=== PATIENT | female | born 1940 | race African-American/Black ===

== ENCOUNTER 2018-11-14 07:47 | Inpatient (IN) | payer MEDICAID ==
[~2018-11-14] VITALS: Ht 165.1 cm; Wt 74.8 kg
[~2018-11-14 07:47] MED LIST: AMLO5TAB4 PO; CARV6.2548 PO; FURO20TA4 PO; HYDROXYCHLOROQUINE PO; POTA20TA82 PO; PRED5TAB48 PO
[2018-11-14] MEDS ORDERED: ALBUTEROL (0.083%) 2.5MG/3ML NEB HHN STA (08:10)
[2018-11-14] MEDS ORDERED: IPRATROPIUM BROMIDE (0.02%) 0.5MG/2.5ML NEB HHN STA (08:10)
[2018-11-14] MEDS ORDERED: METHYLPREDNISOLONE SOD SUCC 125 MG/2 ML VIAL IV STA (08:10)
[2018-11-14] MEDS ORDERED: ASPIRIN 325MG EC TABLET PO ONE (08:15)
[2018-11-14] MEDS ORDERED: NITROGLYCERIN OINT 1GM/INCH UDPKT TD ONE (08:15)
[2018-11-14 08:55] LABS: BASOPHILS % 0.6 % (0.0-2.0); HEMATOCRIT. 33.7 % (36.0-48.0); HEMOGLOBIN. 11.2 g/dL (12.0-16.0); LYMPHOCYTES % 27.7 % (20.0-50.0); MEAN CORPUSCULAR HEMOGLOBIN 31.7 pg (28.0-32.0); MEAN PLATELET VOLUME 8.2 fl (7.4-10.4); MONOCYTES % 13.2 % (2.0-8.0); NEUTROPHILS % 55.5 % (40.0-76.0); PLATELET 86 x1000/uL (130-400); RED BLOOD CELL COUNT 3.55 mill/uL (4.2-5.4)
[2018-11-14 09:00] LABS: CHLORIDE 107 mEq/L (98-107)
[2018-11-14 09:01] LABS: INR 1.1; PROTHROMBIN TIME 11.5 sec (9.6-11.0)
[2018-11-14] MEDS ORDERED: CEFTRIAXONE 1 G PREMIX 50 ML IV ONE (09:45)
[2018-11-14] MEDS ORDERED: AZITHROMYCIN 500 MG in DEXT 5% WATER 500 ML IV ONE (09:45)
[2018-11-14 10:00] VITALS: BP 117/70
[2018-11-14] MEDS ORDERED: ACETAMINOPHEN 325MG TABLET PO PRN (11:30)
[2018-11-14] MEDS ORDERED: ONDANSETRON HCL 4MG/2ML INJ IV PRN (11:30)
[2018-11-14] MEDS ORDERED: IPRATROPIUM/ALBUTEROL 0.5-3(2.5)MG/3ML NEB HHN PRN (11:30)
[2018-11-14] MEDS ORDERED: GUAIFENESIN-DM 200MG-20MG/10ML UDC PO PRN (11:30)
[2018-11-14] MEDS ORDERED: OSIM80TA PO (11:52)
[2018-11-14] MEDS ORDERED: LISI-186 PO (11:52)
[2018-11-14] MEDS ORDERED: ATROV IH (11:55)
[2018-11-14 12:00] VITALS: BP 118/80
[2018-11-14 13:32] VITALS: BP 117/70
[2018-11-14] MEDS: FUROSEMIDE 40MG/4ML VIAL IVP SCH (13:50)
[2018-11-14] MEDS: FAMOTIDINE 20MG TABLET PO SCH (13:50)
[2018-11-14] MEDS: METHYLPREDNISOLONE SOD SUCC 40 MG/ML VIAL IV SCH ×2 (13:50→21:59)
[2018-11-14] MEDS: GUAIFENESIN 600MG ER TABLET PO SCH ×2 (13:51→21:59)
[2018-11-14 14:00] VITALS: BP 115/81
[2018-11-14] MEDS: IPRATROPIUM/ALBUTEROL 0.5-3(2.5)MG/3ML NEB HHN SCH ×2 (15:35→21:15)
[2018-11-14 20:00] VITALS: BP 127/62
[2018-11-15] VITALS: BP 128/66
[2018-11-15] MEDS: IPRATROPIUM/ALBUTEROL 0.5-3(2.5)MG/3ML NEB HHN SCH ×7 (01:04→19:56)
[2018-11-15 04:00] VITALS: BP 119/64
[2018-11-15] MEDS: METHYLPREDNISOLONE SOD SUCC 40 MG/ML VIAL IV SCH (06:28)
[2018-11-15 08:00] VITALS: BP 117/70
[2018-11-15 08:06] LABS: HEMATOCRIT. 32.2 % (36.0-48.0); HEMOGLOBIN. 10.7 g/dL (12.0-16.0); MEAN CORPUSCULAR HEMOGLOBIN 31.5 pg (28.0-32.0); MEAN CORPUSCULAR VOLUME 94.5 fL (81.0-99.0); MEAN PLATELET VOLUME 8.7 fl (7.4-10.4); PLATELET 86 x1000/uL (130-400); RED CELL DISTRIBUTION WIDTH 14.5 % (11.6-14.6)
[2018-11-15 08:35] LABS: CHLORIDE 106 mEq/L (98-107)
[2018-11-15] MEDS: FAMOTIDINE 20MG TABLET PO SCH (08:48)
[2018-11-15] MEDS: ASPIRIN 81MG TABLET PO SCH (08:48)
[2018-11-15] MEDS: GUAIFENESIN 600MG ER TABLET PO SCH ×2 (08:48→22:46)
[2018-11-15] MEDS: FUROSEMIDE 40MG/4ML VIAL IVP SCH (09:00)
[2018-11-15 12:00] VITALS: BP 125/68
[2018-11-15 13:24] LABS: CLARITY URINE CLEAR (CLEAR); COLOR URINE YELLOW (YELLOW); KETONES URINE NEGATIVE (NEGATIVE); LEUKOCYTE ESTERASE URINE NEGATIVE (NEGATIVE); NITRITE URINE NEGATIVE (NEGATIVE); OCCULT BLOOD URINE NEGATIVE (NEGATIVE); PH URINE 5.5 (4.5-8.0); PROTEIN URINE TRACE (NEGATIVE); SPECIFIC GRAVITY URINE 1.031 (1.005-1.030); UROBILINOGEN URINE 0.2 E.U./dL (0.2-1.0)
[2018-11-15 13:30] LABS: PLATELET ESTIMATE DECREASED
[2018-11-15 13:47] LABS: *AMPHETAMINES SCREEN URINE NEGATIVE (NEGATIVE)
[2018-11-15 13:48] LABS: *BARBITURATES SCREEN URINE NEGATIVE (NEGATIVE); *BENZODIAZEPINES SCREEN URINE NEGATIVE (NEGATIVE); *COCAINE SCREEN URINE NEGATIVE (NEGATIVE); METHADONE URINE SCREEN NEGATIVE (NEGATIVE); OPIATES URINE SCREEN NEGATIVE (NEGATIVE)
[2018-11-15 13:49] LABS: CANNABINOID URINE SCREEN NEGATIVE (NEGATIVE); PHENCYCLIDINE URINE SCREEN NEGATIVE (NEGATIVE)
[2018-11-15] MEDS ORDERED: ATROV INH (15:01)
[2018-11-15] MEDS ORDERED: HYDR200T35 PO (15:01)
[2018-11-15] MEDS: FLUTICASONE PROPIONATE 50MCG/SPRAY BOTTLE BOTHNSTRLS SCH ×2 (15:11→22:47)
[2018-11-15 16:00] VITALS: BP 137/78
[2018-11-15 20:00] VITALS: BP 118/67
[2018-11-16] VITALS: BP 105/65
[2018-11-16] MEDS: IPRATROPIUM/ALBUTEROL 0.5-3(2.5)MG/3ML NEB HHN SCH ×5 (00:31→22:10)
[2018-11-16 04:00] VITALS: BP 118/75
[2018-11-16 07:01] LABS: BASOPHILS % 0.2 % (0.0-2.0); EOSINOPHILS % 0.2 % (0.0-5.0); HEMATOCRIT. 31.8 % (36.0-48.0); HEMOGLOBIN. 10.5 g/dL (12.0-16.0); LYMPHOCYTES % 18.5 % (20.0-50.0); MEAN CORPUSCULAR HEMOGLOBIN 31.5 pg (28.0-32.0); MEAN CORPUSCULAR VOLUME 95.4 fL (81.0-99.0); MEAN PLATELET VOLUME 8.3 fl (7.4-10.4); MONOCYTES % 5.7 % (2.0-8.0); NEUTROPHILS % 75.4 % (40.0-76.0); PLATELET 101 x1000/uL (130-400); RED BLOOD CELL COUNT 3.33 mill/uL (4.2-5.4); RED CELL DISTRIBUTION WIDTH 15.2 % (11.6-14.6)
[2018-11-16 07:09] LABS: CHLORIDE 104 mEq/L (98-107)
[2018-11-16 08:00] VITALS: BP 108/63
[2018-11-16] MEDS: ASPIRIN 81MG TABLET PO SCH (08:47)
[2018-11-16] MEDS: FUROSEMIDE 40MG/4ML VIAL IVP SCH (08:47)
[2018-11-16] MEDS: GUAIFENESIN 600MG ER TABLET PO SCH ×2 (08:47→20:41)
[2018-11-16] MEDS: FAMOTIDINE 20MG TABLET PO SCH (08:47)
[2018-11-16] MEDS: FLUTICASONE PROPIONATE 50MCG/SPRAY BOTTLE BOTHNSTRLS SCH ×2 (08:57→20:42)
[2018-11-16] MEDS ORDERED: PREDNISONE 20MG TABLET PO SCH (09:00)
[2018-11-16 12:00] VITALS: BP 115/59
[2018-11-16 16:00] VITALS: BP 114/54
[2018-11-16] MEDS: FUROSEMIDE 100MG/10ML VIAL IVP SCH (17:13)
[2018-11-16 20:00] VITALS: BP 119/66
[2018-11-16] MEDS: CARVEDILOL 3.125 MG TABLET PO SCH (20:41)
[2018-11-17] VITALS: BP 102/53
[2018-11-17] MEDS: IPRATROPIUM/ALBUTEROL 0.5-3(2.5)MG/3ML NEB HHN SCH ×6 (01:40→22:06)
[2018-11-17 04:00] VITALS: BP 106/54
[2018-11-17] MEDS: FUROSEMIDE 100MG/10ML VIAL IVP SCH ×2 (06:16→18:30)
[2018-11-17 08:00] VITALS: BP 107/65
[2018-11-17 08:11] LABS: BASOPHILS % 0.1 % (0.0-2.0); EOSINOPHILS % 0.7 % (0.0-5.0); HEMATOCRIT. 34.3 % (36.0-48.0); HEMOGLOBIN. 11.7 g/dL (12.0-16.0); LYMPHOCYTES % 25.7 % (20.0-50.0); MEAN CORPUSCULAR VOLUME 93.8 fL (81.0-99.0); MEAN PLATELET VOLUME 8.6 fl (7.4-10.4); MONOCYTES % 8.9 % (2.0-8.0); NEUTROPHILS % 64.6 % (40.0-76.0); PLATELET 114 x1000/uL (130-400); RED BLOOD CELL COUNT 3.66 mill/uL (4.2-5.4); RED CELL DISTRIBUTION WIDTH 15.4 % (11.6-14.6)
[2018-11-17] MEDS: CARVEDILOL 3.125 MG TABLET PO SCH ×2 (08:11→21:00)
[2018-11-17 08:29] LABS: CHLORIDE 99 mEq/L (98-107)
[2018-11-17] MEDS: GUAIFENESIN 600MG ER TABLET PO SCH ×2 (09:06→21:42)
[2018-11-17] MEDS: FLUTICASONE PROPIONATE 50MCG/SPRAY BOTTLE BOTHNSTRLS SCH ×2 (09:07→21:43)
[2018-11-17] MEDS: FAMOTIDINE 20MG TABLET PO SCH (09:07)
[2018-11-17] MEDS: ASPIRIN 81MG TABLET PO SCH (09:07)
[2018-11-17 12:00] VITALS: BP 92/53
[2018-11-17] MEDS: POTASSIUM CHLORIDE 20MEQ TABLET SR PO SCH (12:31)
[2018-11-17 16:00] VITALS: BP 100/55
[2018-11-17 20:00] VITALS: BP 100/50
[2018-11-18] VITALS: BP 103/58
[2018-11-18] MEDS: IPRATROPIUM/ALBUTEROL 0.5-3(2.5)MG/3ML NEB HHN SCH ×4 (01:19→12:55)
[2018-11-18 04:00] VITALS: BP 99/54
[2018-11-18] MEDS: FUROSEMIDE 100MG/10ML VIAL IVP SCH (07:06)
[2018-11-18 07:56] VITALS: BP 106/64
[2018-11-18 08:04] LABS: BASOPHILS % 0.3 % (0.0-2.0); EOSINOPHILS % 5.8 % (0.0-5.0); HEMATOCRIT. 33.1 % (36.0-48.0); LYMPHOCYTES % 29.8 % (20.0-50.0); MEAN CORPUSCULAR HEMOGLOBIN 31.5 pg (28.0-32.0); MEAN CORPUSCULAR VOLUME 94.7 fL (81.0-99.0); MEAN PLATELET VOLUME 8.4 fl (7.4-10.4); MONOCYTES % 11.6 % (2.0-8.0); NEUTROPHILS % 52.5 % (40.0-76.0); PLATELET 111 x1000/uL (130-400); RED CELL DISTRIBUTION WIDTH 15.3 % (11.6-14.6)
[2018-11-18] MEDS: POTASSIUM CHLORIDE 20MEQ TABLET SR PO SCH (08:38)
[2018-11-18] MEDS: FAMOTIDINE 20MG TABLET PO SCH (08:38)
[2018-11-18] MEDS: GUAIFENESIN 600MG ER TABLET PO SCH (08:38)
[2018-11-18] MEDS: ASPIRIN 81MG TABLET PO SCH (08:39)
[2018-11-18] MEDS: CARVEDILOL 3.125 MG TABLET PO SCH (08:39)
[2018-11-18] MEDS: FLUTICASONE PROPIONATE 50MCG/SPRAY BOTTLE BOTHNSTRLS SCH (08:39)
[2018-11-18 12:00] VITALS: BP 91/43
[2018-11-18 15:57] VITALS: BP 116/61
[2018-11-18 16:00] VITALS: BP 116/61
[2018-11-18] MEDS ORDERED: FUROSEMIDE 40MG TABLET PO SCH (18:00)
== END 2018-11-18 17:55 | disposition home or self-care (01) | DRG 140 ==
LOC: ER 07:47 → 5WST 10:10 → EDBEDREQ 10:15 → ENRESERV 10:35
PROVIDERS: ADMIT Internal Medicine Nephrology; ATTEND Internal Medicine Nephrology
DX: J44.1 Chronic obstructive pulmonary disease with (acute) exacerbation (principal); J96.00 Acute respiratory failure, unspecified whether with hypoxia or hypercapnia; I50.43 Acute on chronic combined systolic (congestive) and diastolic (congestive) heart failure; D61.818 Other pancytopenia; I42.9 Cardiomyopathy, unspecified; I69.354 Hemiplegia and hemiparesis following cerebral infarction affecting left non-dominant side; M32.9 Systemic lupus erythematosus, unspecified; C34.90 Malignant neoplasm of unspecified part of unspecified bronchus or lung; I11.0 Hypertensive heart disease with heart failure; D63.8 Anemia in other chronic diseases classified elsewhere; M19.90 Unspecified osteoarthritis, unspecified site; Z92.3 Personal history of irradiation; E07.9 Disorder of thyroid, unspecified; E87.6 Hypokalemia; K21.9 Gastro-esophageal reflux disease without esophagitis; M48.00 Spinal stenosis, site unspecified; T38.0X5A Adverse effect of glucocorticoids and synthetic analogues, initial encounter; Y92.89 Other specified places as the place of occurrence of the external cause
CPT/HCPCS: 36415; 70490; 71045; 74018; 80048; 80305; 81003; 83605; 83880; 84484; 92610; 93005; 93306; 94640; 96374; 97161; 97166; 97535; 99285; J0456; J0696; J1940; J2920; J2930; J7060; J7512; J7611; J7620

== ENCOUNTER 2019-05-31 18:41 | Inpatient (IN) | payer MEDICAID ==
[~2019-05-31] VITALS: Ht 162.6 cm; Wt 72.2 kg
[~2019-05-31 18:41] MED LIST changes: -AMLO5TAB4 PO; +ATROV INH; +HYDR200T35 PO; -HYDROXYCHLOROQUINE PO; +LISI-186 PO; +OSIM80TA PO; -POTA20TA82 PO; -PRED5TAB48 PO
[2019-05-31] MEDS ORDERED: SODIUM CHLORIDE 0.9% 1,000 ML IV ONE (22:45)
[2019-05-31 23:13] LABS: BASOPHILS % 0.5 % (0.0-2.0); HEMOGLOBIN. 11.2 g/dL (12.0-16.0); MEAN CORPUSCULAR HEMOGLOBIN 30.8 pg (28.0-32.0); MEAN CORPUSCULAR VOLUME 90.3 fL (81.0-99.0); MEAN PLATELET VOLUME 6.9 fl (7.4-10.4); MONOCYTES % 9.2 % (2.0-8.0); NEUTROPHILS % 68.3 % (40.0-76.0); PLATELET 150 x1000/uL (130-400); RED BLOOD CELL COUNT 3.65 mill/uL (4.2-5.4); RED CELL DISTRIBUTION WIDTH 13.8 % (11.6-14.6)
[2019-05-31 23:20] LABS: CHLORIDE 100 mEq/L (98-107)
[2019-05-31 23:23] LABS: INR 1.1
[2019-06-01] MEDS ORDERED: ONDANSETRON HCL 4MG/2ML INJ IV PRN (00:45)
[2019-06-01] MEDS ORDERED: IPRATROPIUM/ALBUTEROL 0.5-3(2.5)MG/3ML NEB HHN PRN (00:45)
[2019-06-01] MEDS ORDERED: DIPHENHYDRAMINE 50MG/ML VIAL IV PRN (00:45)
[2019-06-01] MEDS ORDERED: CLONIDINE 0.1MG TABLET PO PRN (00:45)
[2019-06-01] MEDS ORDERED: CEFTRIAXONE 1 G PREMIX 50 ML IV SCH (01:00)
[2019-06-01] MEDS ORDERED: IOHEXOL-300 100 ML BOTTLE ONE (07:30)
[2019-06-01 08:03] LABS: CLARITY URINE CLEAR (CLEAR); COLOR URINE YELLOW (YELLOW); KETONES URINE NEGATIVE (NEGATIVE); LEUKOCYTE ESTERASE URINE 1+ (NEGATIVE); NITRITE URINE NEGATIVE (NEGATIVE); OCCULT BLOOD URINE NEGATIVE (NEGATIVE); PROTEIN URINE NEGATIVE (NEGATIVE); SPECIFIC GRAVITY URINE 1.033 (1.005-1.030)
[2019-06-01 09:30] VITALS: BP 119/54
[2019-06-01 10:00] VITALS: BP 119/54
[2019-06-01] MEDS: FAMOTIDINE 20MG TABLET PO SCH (10:39)
[2019-06-01 10:40] LABS: BASOPHILS % 0.5 % (0.0-2.0); HEMATOCRIT. 33.6 % (36.0-48.0); HEMOGLOBIN. 11.1 g/dL (12.0-16.0); LYMPHOCYTES % 29.8 % (20.0-50.0); MEAN CORPUSCULAR HEMOGLOBIN 30.4 pg (28.0-32.0); MEAN PLATELET VOLUME 6.9 fl (7.4-10.4); MONOCYTES % 13.2 % (2.0-8.0); NEUTROPHILS % 56.5 % (40.0-76.0); PLATELET 139 x1000/uL (130-400); RED BLOOD CELL COUNT 3.65 mill/uL (4.2-5.4); RED CELL DISTRIBUTION WIDTH 14.1 % (11.6-14.6)
[2019-06-01] MEDS: CARVEDILOL 3.125 MG TABLET PO SCH ×2 (10:40→20:52)
[2019-06-01] MEDS: ENOXAPARIN 30MG/0.3ML SYR SUBCUT SCH (10:41)
[2019-06-01] MEDS: FUROSEMIDE 40MG/4ML VIAL IVP SCH (10:41)
[2019-06-01] MEDS: ACETAMINOPHEN 325MG TABLET PO PRN ×2 (10:42→23:49)
[2019-06-01 11:04] LABS: CHLORIDE 103 mEq/L (98-107)
[2019-06-01 12:00] VITALS: BP 119/58
[2019-06-01] MEDS: SODIUM CHLORIDE 0.9% INJ 3ML FLUSH IVF SCH ×2 (13:28→20:52)
[2019-06-01 16:43] VITALS: BP 90/45
[2019-06-01 20:00] VITALS: BP 118/59
[2019-06-02] VITALS: BP 123/63
[2019-06-02] MEDS: CEFTRIAXONE 1 G PREMIX 50 ML IV SCH (00:57)
[2019-06-02 04:00] VITALS: BP 121/59
[2019-06-02] MEDS: SODIUM CHLORIDE 0.9% INJ 3ML FLUSH IVF SCH ×3 (05:11→21:41)
[2019-06-02 08:06] VITALS: BP 116/53
[2019-06-02] MEDS: ACETAMINOPHEN 325MG TABLET PO PRN ×2 (08:48→20:02)
[2019-06-02] MEDS: FAMOTIDINE 20MG TABLET PO SCH (08:49)
[2019-06-02] MEDS: ENOXAPARIN 30MG/0.3ML SYR SUBCUT SCH (08:49)
[2019-06-02] MEDS: CARVEDILOL 3.125 MG TABLET PO SCH ×2 (09:00→20:02)
[2019-06-02] MEDS: FUROSEMIDE 40MG/4ML VIAL IVP SCH (09:12)
[2019-06-02 12:43] VITALS: BP 102/49
[2019-06-02 16:14] VITALS: BP 113/56
[2019-06-02 19:58] VITALS: BP 118/57
[2019-06-03] VITALS (7 sets, daily range): BP systolic 99–133; BP diastolic 53–66
[2019-06-03] MEDS: CEFTRIAXONE 1 G PREMIX 50 ML IV SCH
[2019-06-03] MEDS: ACETAMINOPHEN 325MG TABLET PO PRN ×3 (00:43→21:17)
[2019-06-03] MEDS: SODIUM CHLORIDE 0.9% INJ 3ML FLUSH IVF SCH ×3 (05:33→21:17)
[2019-06-03] MEDS: CARVEDILOL 3.125 MG TABLET PO SCH ×2 (09:00→21:17)
[2019-06-03] MEDS: FAMOTIDINE 20MG TABLET PO SCH (09:05)
[2019-06-03] MEDS: FUROSEMIDE 40MG TABLET PO SCH (09:05)
[2019-06-03] MEDS: ENOXAPARIN 30MG/0.3ML SYR SUBCUT SCH (09:09)
[2019-06-03] MEDS: AZITHROMYCIN 500 MG in DEXT 5% WATER 250 ML IV SCH (16:17)
[2019-06-03] MEDS: PIPERACILLIN/TAZOBACTAM 3.375 G in DEXT 5% WATER 100 ML IV SCH ×2 (21:16→23:58)
[2019-06-04 00:21] VITALS: BP 134/63
[2019-06-04] MEDS ORDERED: CEFTRIAXONE 1,000 MG in DEXTROSE 5% WATER 50 ML IV SCH (01:00)
[2019-06-04 04:00] VITALS: BP 99/52
[2019-06-04] MEDS: PIPERACILLIN/TAZOBACTAM 3.375 G in DEXT 5% WATER 100 ML IV SCH ×3 (05:17→17:13)
[2019-06-04] MEDS: SODIUM CHLORIDE 0.9% INJ 3ML FLUSH IVF SCH ×3 (05:17→21:17)
[2019-06-04 07:24] LABS: CHLORIDE 102 mEq/L (98-107)
[2019-06-04 07:42] LABS: PHOSPHORUS 2.4 mg/dL (2.5-4.9)
[2019-06-04 07:48] LABS: HEMATOCRIT. 29.8 % (36.0-48.0); HEMOGLOBIN. 10.3 g/dL (12.0-16.0); MEAN CORPUSCULAR HEMOGLOBIN 31.4 pg (28.0-32.0); MEAN CORPUSCULAR VOLUME 90.5 fL (81.0-99.0); PLATELET 142 x1000/uL (130-400); RED BLOOD CELL COUNT 3.29 mill/uL (4.2-5.4)
[2019-06-04 08:00] VITALS: BP 99/51
[2019-06-04] MEDS: CARVEDILOL 3.125 MG TABLET PO SCH ×2 (09:00→20:51)
[2019-06-04] MEDS: FUROSEMIDE 40MG TABLET PO SCH (09:17)
[2019-06-04] MEDS: FAMOTIDINE 20MG TABLET PO SCH (09:17)
[2019-06-04] MEDS: ENOXAPARIN 30MG/0.3ML SYR SUBCUT SCH (09:18)
[2019-06-04 12:00] VITALS: BP 108/56
[2019-06-04] MEDS: AZITHROMYCIN 500 MG in DEXT 5% WATER 250 ML IV SCH (15:46)
[2019-06-04 16:00] VITALS: BP 101/61
[2019-06-04 17:24] LABS: PLATELET ESTIMATE NORMAL
[2019-06-04] MEDS ORDERED: MAGNESIUM 1 G PREMIX 100 ML IV NR (17:30)
[2019-06-04] MEDS ORDERED: POTASSIUM PHOS,M-BASIC-D-BASIC 10 MMOL in DEXT 5% WATER 246.6667 ML IV NR (18:00)
[2019-06-04 20:55] VITALS: BP 105/54
[2019-06-04] MEDS: OMEPRAZOLE 20MG CAPSULE EXTENDED RELEASE PO SCH (21:17)
[2019-06-05] MEDS: PIPERACILLIN/TAZOBACTAM 3.375 G in DEXT 5% WATER 100 ML IV SCH ×3 (00:37→11:22)
[2019-06-05 00:46] VITALS: BP 116/56
[2019-06-05 04:00] VITALS: BP 96/51
[2019-06-05] MEDS: SODIUM CHLORIDE 0.9% INJ 3ML FLUSH IVF SCH ×2 (06:12→11:29)
[2019-06-05] MEDS: OMEPRAZOLE 20MG CAPSULE EXTENDED RELEASE PO SCH (06:12)
[2019-06-05 07:22] LABS: HEMATOCRIT. 28.8 % (36.0-48.0); HEMOGLOBIN. 9.8 g/dL (12.0-16.0); MEAN CORPUSCULAR HEMOGLOBIN 30.7 pg (28.0-32.0); MEAN PLATELET VOLUME 7.4 fl (7.4-10.4); PLATELET 146 x1000/uL (130-400); RED BLOOD CELL COUNT 3.19 mill/uL (4.2-5.4); RED CELL DISTRIBUTION WIDTH 13.7 % (11.6-14.6)
[2019-06-05 07:53] LABS: CHLORIDE 100 mEq/L (98-107)
[2019-06-05 08:00] VITALS: BP 107/52
[2019-06-05] MEDS: ENOXAPARIN 30MG/0.3ML SYR SUBCUT SCH (09:00)
[2019-06-05] MEDS: CARVEDILOL 3.125 MG TABLET PO SCH (11:22)
[2019-06-05] MEDS: FUROSEMIDE 40MG TABLET PO SCH (11:22)
[2019-06-05 12:15] VITALS: BP 102/49
[2019-06-05 15:19] VITALS: BP 95/50
[2019-06-05 15:45] VITALS: BP 95/50
[2019-06-05] MEDS: AZITHROMYCIN 500 MG in DEXT 5% WATER 250 ML IV SCH (16:04)
[2019-06-05 17:50] LABS: PLATELET ESTIMATE NORMAL
== END 2019-06-05 18:15 | disposition home or self-care (01) | DRG 720 ==
LOC: ER 18:41 → 6EST 23:28 → ENRESERV 06-01 08:58 → 6WST 06-01 14:15
PROVIDERS: ADMIT Internal Medicine; ATTEND Internal Medicine
DX: A41.9 Sepsis, unspecified organism (principal); I69.354 Hemiplegia and hemiparesis following cerebral infarction affecting left non-dominant side; I11.0 Hypertensive heart disease with heart failure; E87.1 Hypo-osmolality and hyponatremia; I50.42 Chronic combined systolic (congestive) and diastolic (congestive) heart failure; K57.92 Diverticulitis of intestine, part unspecified, without perforation or abscess without bleeding; C34.90 Malignant neoplasm of unspecified part of unspecified bronchus or lung; J44.9 Chronic obstructive pulmonary disease, unspecified; M32.9 Systemic lupus erythematosus, unspecified; N28.1 Cyst of kidney, acquired; R74.0 Nonspecific elevation of levels of transaminase and lactic acid dehydrogenase [LDH]; M19.90 Unspecified osteoarthritis, unspecified site; D64.9 Anemia, unspecified; D72.819 Decreased white blood cell count, unspecified; N39.0 Urinary tract infection, site not specified; K21.9 Gastro-esophageal reflux disease without esophagitis; Z87.440 Personal history of urinary (tract) infections; Z92.3 Personal history of irradiation; Z92.21 Personal history of antineoplastic chemotherapy; Z79.899 Other long term (current) drug therapy
CPT/HCPCS: 36415; 71045; 74176; 74177; 76700; 80048; 80053; 81003; 83605; 83735; 84100; 85025; 87804; 93970; 96365; 99285; J0456; J0696; J1200; J1650; J1940; J2543; J3475; J3490; J7030; J7060; Q9967

== ENCOUNTER 2019-07-20 10:10 | Inpatient (IN) | payer MEDICAID ==
[~2019-07-20] VITALS: Ht 172.7 cm; Wt 62.7 kg
[2019-07-20] MEDS ORDERED: SODIUM CHLORIDE 0.9% 1,000 ML IV ONE (10:43)
[2019-07-20 11:43] LABS: CHLORIDE 103 mEq/L (98-107)
[2019-07-20 11:44] LABS: BASOPHILS % 0.4 % (0.0-2.0); EOSINOPHILS % 1.1 % (0.0-5.0); HEMATOCRIT. 29.5 % (36.0-48.0); HEMOGLOBIN. 9.6 g/dL (12.0-16.0); LYMPHOCYTES % 8.2 % (20.0-50.0); MEAN CORPUSCULAR HEMOGLOBIN 29.7 pg (28.0-32.0); MEAN CORPUSCULAR VOLUME 90.9 fL (81.0-99.0); MEAN PLATELET VOLUME 7.4 fl (7.4-10.4); MONOCYTES % 8.5 % (2.0-8.0); NEUTROPHILS % 81.8 % (40.0-76.0); PLATELET 271 x1000/uL (130-400); RED BLOOD CELL COUNT 3.24 mill/uL (4.2-5.4); RED CELL DISTRIBUTION WIDTH 16.3 % (11.6-14.6)
[2019-07-20] MEDS ORDERED: GADOBENATE DIMEGLUMINE 529 MG/ML 10ML IV ONE (15:21)
[2019-07-20] MEDS ORDERED: LEVETIRACETAM 1000MG/100ML 100 ML IV ONE (16:30)
[2019-07-20] MEDS ORDERED: ASPIRIN 81MG TABLET PO ONE (16:45)
[2019-07-20] MEDS ORDERED: ONDANSETRON HCL 4MG/2ML INJ IV PRN (19:30)
[2019-07-20] MEDS ORDERED: IPRATROPIUM/ALBUTEROL 0.5-3(2.5)MG/3ML NEB HHN PRN (19:30)
[2019-07-20] MEDS ORDERED: MAGNESIUM/ALUMINUM HYDROXIDE/SIMETHICONE 30ML UDC PO PRN (19:30)
[2019-07-20] MEDS ORDERED: GUAIFENESIN 200MG/10ML SUGAR FREE UDC PO PRN (19:30)
[2019-07-20] MEDS ORDERED: DIPHENHYDRAMINE 50MG/ML VIAL IV PRN (19:30)
[2019-07-20] MEDS ORDERED: CLONIDINE 0.1MG TABLET PO PRN (19:30)
[2019-07-20] MEDS ORDERED: ACETAMINOPHEN 325MG TABLET PO PRN ×2 (19:30)
[2019-07-20] MEDS ORDERED: LEVETIRACETAM 500 MG in SODIUM CHLORIDE 0.9% 100 ML IV SCH (19:30)
[2019-07-20] MEDS ORDERED: ZOLPIDEM TARTRATE 5MG TABLET PO PRN (21:00)
[2019-07-20] MEDS: CARVEDILOL 3.125 MG TABLET PO SCH (21:00)
[2019-07-20 21:09] VITALS: BP 102/63
[2019-07-20 22:00] VITALS: BP 102/63
[2019-07-20] MEDS: LEVETIRACETAM 500MG PREMIX 100 ML IV SCH (22:55)
[2019-07-20] MEDS: OMEPRAZOLE 20MG CAPSULE EXTENDED RELEASE PO SCH (22:57)
[2019-07-20] MEDS: SODIUM CHLORIDE 0.9% INJ 3ML FLUSH IVF SCH (23:03)
[2019-07-20] MEDS: DEXAMETHASONE 4MG TABLET PO SCH (23:55)
[2019-07-21] VITALS: BP 102/63
[2019-07-21 04:00] VITALS: BP 115/55
[2019-07-21] MEDS: DEXAMETHASONE 4MG TABLET PO SCH ×3 (05:51→17:38)
[2019-07-21] MEDS: SODIUM CHLORIDE 0.9% INJ 3ML FLUSH IVF SCH ×3 (05:51→20:18)
[2019-07-21] MEDS: OMEPRAZOLE 20MG CAPSULE EXTENDED RELEASE PO SCH (05:51)
[2019-07-21 08:00] VITALS: BP 123/66
[2019-07-21] MEDS: CARVEDILOL 3.125 MG TABLET PO SCH ×2 (09:30→20:11)
[2019-07-21] MEDS: LEVETIRACETAM 500MG PREMIX 100 ML IV SCH ×2 (09:30→20:11)
[2019-07-21] MEDS: FUROSEMIDE 40MG TABLET PO SCH (09:30)
[2019-07-21] MEDS: ENOXAPARIN 60MG/0.6ML SYR SUBCUT SCH ×2 (11:22→20:12)
[2019-07-21 12:00] VITALS: BP 117/67
[2019-07-21 16:00] VITALS: BP 131/71
[2019-07-21 16:49] LABS: INR 1.2; PROTHROMBIN TIME 12.7 sec (9.6-11.0)
[2019-07-21] MEDS ORDERED: DIATR MEGLU/DIATRIZOATE SOLN 30ML PO ONE (17:30)
[2019-07-21] MEDS: DIATR MEGLU/DIATRIZOATE SOLN 30ML PO SCH (17:38)
[2019-07-21 20:00] VITALS: BP 124/72
[2019-07-22] VITALS: BP 127/68
[2019-07-22] MEDS: DEXAMETHASONE 4MG TABLET PO SCH ×5 (00:20→23:40)
[2019-07-22 04:00] VITALS: BP 115/57
[2019-07-22] MEDS: SODIUM CHLORIDE 0.9% INJ 3ML FLUSH IVF SCH ×3 (06:20→21:01)
[2019-07-22 08:36] VITALS: BP 107/49
[2019-07-22] MEDS: CARVEDILOL 3.125 MG TABLET PO SCH ×2 (09:00→20:56)
[2019-07-22] MEDS: LEVETIRACETAM 500MG PREMIX 100 ML IV SCH ×2 (09:17→20:56)
[2019-07-22] MEDS: FAMOTIDINE 20MG TABLET PO SCH (09:17)
[2019-07-22] MEDS: FUROSEMIDE 40MG TABLET PO SCH (09:17)
[2019-07-22] MEDS: ENOXAPARIN 60MG/0.6ML SYR SUBCUT SCH ×2 (10:29→21:01)
[2019-07-22] MEDS ORDERED: DIATR MEGLU/DIATRIZOATE SOLN 30ML PO ONE (11:45)
[2019-07-22] MEDS: DIATR MEGLU/DIATRIZOATE SOLN 30ML PO SCH (12:02)
[2019-07-22 12:13] VITALS: BP 117/63
[2019-07-22 16:10] VITALS: BP 122/64
[2019-07-22 20:00] VITALS: BP 121/70
[2019-07-23] VITALS: BP 138/69
[2019-07-23 04:00] VITALS: BP 119/61
[2019-07-23] MEDS: SODIUM CHLORIDE 0.9% INJ 3ML FLUSH IVF SCH ×3 (05:57→22:28)
[2019-07-23] MEDS: DEXAMETHASONE 4MG TABLET PO SCH ×3 (05:57→17:46)
[2019-07-23 08:00] VITALS: BP 126/66
[2019-07-23] MEDS: FAMOTIDINE 20MG TABLET PO SCH (08:34)
[2019-07-23] MEDS: FUROSEMIDE 40MG TABLET PO SCH (08:34)
[2019-07-23] MEDS: CARVEDILOL 3.125 MG TABLET PO SCH (08:35)
[2019-07-23] MEDS: LEVETIRACETAM 500MG PREMIX 100 ML IV SCH (08:35)
[2019-07-23 12:00] VITALS: BP 119/65
[2019-07-23] MEDS: LORAZEPAM 2MG/ML CPJ IV PRN (12:00)
[2019-07-23] MEDS: ENOXAPARIN 60MG/0.6ML SYR SUBCUT SCH (12:17)
[2019-07-23 16:00] VITALS: BP 130/73
[2019-07-23 20:00] VITALS: BP 120/67
[2019-07-23] MEDS: CARVEDILOL 6.25 MG TABLET PO SCH (21:00)
[2019-07-23] MEDS: LEVETIRACETAM 500MG/5ML CUP PO SCH (21:00)
[2019-07-23] MEDS: APIXABAN 5 MG TABLET PO SCH (21:00)
[2019-07-24] VITALS: BP 141/77
[2019-07-24] MEDS: LEVETIRACETAM 500MG/5ML CUP PO SCH ×3 (00:25→21:41)
[2019-07-24] MEDS: APIXABAN 5 MG TABLET PO SCH ×3 (00:26→21:41)
[2019-07-24] MEDS: DEXAMETHASONE 4MG TABLET PO SCH ×5 (00:27→23:51)
[2019-07-24] MEDS: CARVEDILOL 6.25 MG TABLET PO SCH ×3 (00:27→21:41)
[2019-07-24] MEDS: LORAZEPAM 2MG/ML CPJ IV PRN (00:31)
[2019-07-24 04:00] VITALS: BP 134/83
[2019-07-24 06:30] LABS: CHLORIDE 104 mEq/L (98-107)
[2019-07-24] MEDS: SODIUM CHLORIDE 0.9% INJ 3ML FLUSH IVF SCH ×3 (06:57→21:42)
[2019-07-24 08:00] VITALS: BP 130/71
[2019-07-24] MEDS: FAMOTIDINE 20MG TABLET PO SCH (08:51)
[2019-07-24 12:00] VITALS: BP 129/73
[2019-07-24 20:00] VITALS: BP 121/72
[2019-07-25] VITALS: BP 151/77
[2019-07-25 04:00] VITALS: BP 127/68
[2019-07-25] MEDS: DEXAMETHASONE 4MG TABLET PO SCH ×2 (06:35→12:00)
[2019-07-25] MEDS: SODIUM CHLORIDE 0.9% INJ 3ML FLUSH IVF SCH ×2 (06:36→14:00)
[2019-07-25 08:00] VITALS: BP 131/67
[2019-07-25] MEDS: LEVETIRACETAM 500MG/5ML CUP PO SCH (09:07)
[2019-07-25] MEDS: APIXABAN 5 MG TABLET PO SCH (09:08)
[2019-07-25] MEDS: FAMOTIDINE 20MG TABLET PO SCH (09:08)
[2019-07-25] MEDS: CARVEDILOL 6.25 MG TABLET PO SCH (09:08)
[2019-07-25 12:00] VITALS: BP 117/55
[2019-07-25 13:39] VITALS: BP 131/84
== END 2019-07-25 15:35 | disposition hospice, home (50) | DRG 52 ==
LOC: ER 10:32 → 5WST 16:32 → EDBEDREQ 16:34 → EDBEDREQTM 16:34 → ENRESERV 18:51
PROVIDERS: ADMIT Internal Medicine; ATTEND Internal Medicine
DX: G93.41 Metabolic encephalopathy (principal); E43 Unspecified severe protein-calorie malnutrition; I82.411 Acute embolism and thrombosis of right femoral vein; C79.31 Secondary malignant neoplasm of brain; I11.0 Hypertensive heart disease with heart failure; I50.9 Heart failure, unspecified; M32.9 Systemic lupus erythematosus, unspecified; R18.8 Other ascites; I69.354 Hemiplegia and hemiparesis following cerebral infarction affecting left non-dominant side; K21.9 Gastro-esophageal reflux disease without esophagitis; J44.9 Chronic obstructive pulmonary disease, unspecified; M19.90 Unspecified osteoarthritis, unspecified site; N28.1 Cyst of kidney, acquired; Z51.5 Encounter for palliative care; I82.433 Acute embolism and thrombosis of popliteal vein, bilateral; D64.9 Anemia, unspecified; C80.1 Malignant (primary) neoplasm, unspecified; Z85.118 Personal history of other malignant neoplasm of bronchus and lung; Z79.899 Other long term (current) drug therapy
CPT/HCPCS: 36415; 70544; 70553; 71045; 71250; 74177; 80048; 80053; 82105; 82378; 83735; 84484; 85025; 93005; 93970; 96365; 97116; 97162; 99285; A9577; J1650; J1953; J2060; J7030; J8540; Q9963